=== PATIENT | female | born 2000 | race Caucasian/White ===

== ENCOUNTER 2021-09-09 01:48 | Observation (INO) ==
[2021-09-09] MEDS ORDERED: SODIUM CHLORIDE 0.9% 500 ML IV STA (02:08)
[2021-09-09] MEDS ORDERED: ONDANSETRON INJ 2 MG/ML 2 ML VIAL IV STA (02:09)
[2021-09-09] MEDS ORDERED: MoRPHine SULFATE 4 MG/ML 1 ML CARP\\VIAL IV STA (02:09)
--- NOTE | 2021-09-09 02:11 | Emergency Department Note ---
Impression & Plan Pyelonephritis ADMIT ED Provider Note HPI: The patient is a 20-year-old female who presents the emergency department with about 4 days of dysuria and right flank pain. Patient states she is also had urinary frequency and urgency. Patient states she was seen at an urgent care 3 days ago, she was diagnosed with a UTI, she tells me that STD testing was negative, placed on antibiotics (patient is unsure of which antibiotic) and Pyridium, patient states that her right flank pain has not gotten any better. On arrival to the ED the patient is hemodynamically stable, she is afebrile, she is otherwise in no acute distress. ROS: -: Right flank pain, dysuria, urinary frequency *10 point review systems was conducted and is otherwise negative unless stated above *Outpatient medications and allergy history reviewed PE: General: Alert, NAD HEENT: Normocephalic, atraumatic Eyes: Extraocular eye movement is intact, no scleral erythema Pulmonary: Clear to auscultation bilaterally, no wheezing Cardio: Regular rate and rhythm GI: Abdomen is soft, nontender : No suprapubic tenderness, mild right flank tenderness to palpation MSK: No evidence of trauma or malformation of the extremities, no edema Skin: No evidence of rash Neuro: Alert, no focal deficits Psychiatric: Cooperative CT ABDOMEN & PELVIS With Contrast: Mild fullness of the right kidney with delayed nephrogram. No definite offending calculus however, evaluation is limited due to the presence of intravenous contrast. Correlate for recently passed right-sided stone versus right-sided pyelonephritis. Mild wall thickening of the urinary bladder, correlate with urinalysis if cl inically indicated. Radiologist: Brandon Basilio MD site monitor: - An order was placed for continuous cardiac monitoring - Patient was noted to be in sinus rhythm with rate of 80 Medical Decision Making: Patient presented to the emergency department the chief complaint of right flank pain, ongoing dysuria and urinary frequency. Urinalysis does show evidence of urinary tract infection, will send urine culture as well as blood culture and patient was given IV ceftriaxone here in the ED. CT imaging of the abdomen pelvis shows evidence of some mild fullness of the right kidney suspicious for recently passed stone versus right-sided pyelonephritis. Patient does have a slight leukocytosis, also has findings of mild wall thickening of the urinary bladder. Patient did have some significant discomfort later in her stay here in the ED and was given morphine and Toradol with improvement in her pain. Given failure of outpatient therapy in addition to her right flank pain I do feel she would benefit from IV antibiotics and admission. Case was discussed with the on-call hospitalist for [facility], Dr. Dominique, and the patient was admitted in stable condition for further care. Diagnosis: 1. Acute right-sided flank pain 2. Acute pyelonephritis 3. Urinary tract infection 4. Leukocytosis Disposition: Admission Keven Delgado DO Emergency Medicine Past Med/Surg History Social History Smoking Status: Never smoker Preferred Language: Slovak Feels Safe at Home: Yes Allergies Allergies Allergy/AdvReac Type Severity Reaction Status Date / Time No Known Allergies Allergy Verified 09/09/21 02:14 Home Meds Home Medications Medication Instructions Recorded Confirmed cefdinir 300 mg capsule 300 mg PO BID 09/09/21 09/09/21 phenazopyridine 200 mg tablet 200 mg PO Q8H PRN 09/09/21 09/09/21 Results & Data (ED) Vital Signs Vital Signs - 24 hr 09/09/21 01:54 09/09/21 03:40 Temperature 36.8 C Temperature Source Temporal Artery Scan Pulse Rate 87 Pulse Rate [Apical] 76 Pulse Rhythm Regular Pulse Strength Normal Respiratory Rate 16 18 Respiratory Effort / Characteristics Non-Labored Spontaneous Respiratory Depth Normal Respiratory Pattern Regular Blood Pressure 107/70 Blood Pressure [Right Arm] 103/61 Blood Pressure Mean 82 Blood Pressure Mean [Right Arm] 75 Blood Pressure Position Sitting Pulse Oximetry 98 98 Oxygen Delivery Method Room Air Room Air Sepsis Recent Fever Within 48 Hours No Sepsis New/Unexplained Change in Mental Status N/A Sepsis Action Taken by Nursing No Action Required Laboratory Data Result diagrams: 09/09/21 02:17 09/09/21 02:17 Lab Results 09/09/21 09/09/21 09/09/21 Range/Units 02:17 02:17 02:17 WBC 11.34 H (4.8-10.8) K/uL RBC 4.23 (4.2-5.4) M/uL Hgb 13.4 (12.0-16.0) g/dL Hct 39.5 (37-47) % MCV 93.4 (80-100) fL MCH 31.7 (25-34) pg MCHC 33.9 (32-36) g/dL RDW Std Deviation 42.3 (36.4-46.3) fL RDW Coeff of [place] 12.5 (11.5-14.5) % Plt Count 387 (130-400) K/uL MPV 10.3 (7.4-10.4) fL Immature Gran % (Auto) 0.3 % Neut % (Auto) 61.9 % Lymph % (Auto) 26.6 % [place] % (Auto) 8.9 % Eos % (Auto) 1.9 % Baso % (Auto) 0.4 % Neut # (Auto) 7.02 H (1.4-6.5) K/uL Lymph # (Auto) 3.02 (1.2-3.4) K/uL [place] # (Auto) 1.01 H (0.11-0.59) K/uL Eos # (Auto) 0.21 (0-0.5) K/uL Baso # (Auto) 0.05 (0-0.2) K/uL Immature Gran # (Auto) 0.03 H (0.00-0.02) K/uL Sodium 139 (136-145) mmol/L Potassium 3.8 (3.5-5.1) mmol/L Chloride 110 H (98-107) mmol/L Carbon Dioxide 22 (21-32) mmol/L Anion Gap 7 (3-11) BUN 8 (6-23) mg/dl Creatinine 0.59 L (0.6-1.2) mg/dl Est Cr Clr Drug Dosing 118.0 ml/min Est GFR ( Amer) > 150.0 ml/min Est GFR (Non-Af Amer) 130.1 ml/min BUN/Creatinine Ratio 13.6 (10-20) Glucose 85 (70-99(Fasting)) mg/dl Calcium 9.4 (8.5-10.1) mg/dl Total Bilirubin 0.5 (0.2-1.0) mg/dl AST 12 L (13-39) U/L ALT 8 (7-52) U/L Alkaline Phosphatase 91 (34-104) U/L Total Protein 7.1 (6.0-8.3) gm/dl Albumin 4.2 (3.4-5.0) gm/dl Globulin 2.9 (2.5-4.0) gm/dl Albumin/Globulin Ratio 1.4 (0.9-2) Lipase 25 (11-82) U/L HCG, Qual Negative (Negative) Urine Color Urine Appearance (Clear) Urine pH (4.5-7.5) Ur Specific [place] (1.000-1.030) Urine Protein (Negative) Urine Glucose (UA) (Negative) Urine Ketones (Negative) Urine Blood (Negative) Urine Nitrite (Negative) Urine Bilirubin (Negative) Urine Urobilinogen (Negative) Ur Leukocyte Esterase (Negative) Urine WBC (Auto) (0-5) /hpf Urine RBC (Auto) (0-4) /hpf U Hyaline Cast (Auto) (0-5) /lpf U Epithel Cells (Auto) (0-5) /lpf Urine Bacteria (Auto) (Negative) POC Ur Test (NEG) 09/09/21 09/09/21 Range/Units 02:17 02:28 WBC (4.8-10.8) K/uL RBC (4.2-5.4) M/uL Hgb (12.0-16.0) g/dL Hct (37-47) % MCV (80-100) fL MCH (25-34) pg MCHC (32-36) g/dL RDW Std Deviation (36.4-46.3) fL RDW Coeff of [place] (11.5-14.5) % Plt Count (130-400) K/uL MPV (7.4-10.4) fL Immature Gran % (Auto) % Neut % (Auto) % Lymph % (Auto) % [place] % (Auto) % Eos % (Auto) % Baso % (Auto) % Neut # (Auto) (1.4-6.5) K/uL Lymph # (Auto) (1.2-3.4) K/uL [place] # (Auto) (0.11-0.59) K/uL Eos # (Auto) (0-0.5) K/uL Baso # (Auto) (0-0.2) K/uL Immature Gran # (Auto) (0.00-0.02) K/uL Sodium (136-145) mmol/L Potassium (3.5-5.1) mmol/L Chloride (98-107) mmol/L Carbon Dioxide (21-32) mmol/L Anion Gap (3-11) BUN (6-23) mg/dl Creatinine (0.6-1.2) mg/dl Est Cr Clr Drug Dosing ml/min Est GFR ( Amer) ml/min Est GFR (Non-Af Amer) ml/min BUN/Creatinine Ratio (10-20) Glucose (70-99(Fasting)) mg/dl Calcium (8.5-10.1) mg/dl Total Bilirubin (0.2-1.0) mg/dl AST (13-39) U/L ALT (7-52) U/L Alkaline Phosphatase (34-104) U/L Total Protein (6.0-8.3) gm/dl Albumin (3.4-5.0) gm/dl Globulin (2.5-4.0) gm/dl Albumin/Globulin Ratio (0.9-2) Lipase (11-82) U/L HCG, Qual (Negative) Urine Color Dark Yellow Urine Appearance Clear (Clear) Urine pH 8.5 H (4.5-7.5) Ur Specific [place] 1.010 (1.000-1.030) Urine Protein Negative (Negative) Urine Glucose (UA) Negative (Negative) Urine Ketones Negative (Negative) Urine Blood 2+ H (Negative) Urine Nitrite Positive A (Negative) Urine Bilirubin Negative (Negative) Urine Urobilinogen Negative (Negative) Ur Leukocyte Esterase Trace H (Negative) Urine WBC (Auto) 10-30 H (0-5) /hpf Urine RBC (Auto) >30 H (0-4) /hpf U Hyaline Cast (Auto) 0 (0-5) /lpf U Epithel Cells (Auto) 20-30 H (0-5) /lpf Urine Bacteria (Auto) Negative (Negative) POC Ur Test NEG (NEG) Administered Medications Ceftriaxone Sodium (Rocephin) 2,000 mg in 70 mls @ 140 mls/hr IV NOW STA Stop: 09/09/21 04:25 Last Admin: 09/09/21 04:19 Dose: 140 mls/hr Documented by: [id number] Discontinued Medications Sodium Chloride (Nss) 500 mls @ 999 mls/hr IV .Q31M STA Stop: 09/09/21 02:38 Last Infusion: 09/09/21 03:45 Dose: 0 mls/hr Documented by: [id number] Admin: 09/09/21 02:24 Dose: 999 mls/hr Documented by: [id number] Ketorolac Tromethamine (Ketorolac Tromethamine 15 Mg/Ml Vial) 15 mg IV NOW ONE Stop: 09/09/21 03:44 Last Admin: 09/09/21 03:48 Dose: 15 mg Documented by: [id number] Morphine Sulfate (Morphine Sulfate 4 Mg/Ml 1 Ml Carp\Vial) 4 mg IV NOW STA Stop: 09/09/21 02:10 Last Admin: 09/09/21 02:25 Dose: 4 mg Documented by: [id number] Ondansetron HCl (Ondansetron Inj 2 Mg/Ml 2 Ml Vial) 4 mg IV NOW STA Stop: 09/09/21 02:10 Last Admin: 09/09/21 02:25 Dose: 4 mg Documented by: [id number] Discharge Plan Visit Data Chief Complaint: Urinary Symptoms Stated Complaint: UTI, LOWER BACK PAIN ED Provider: Keven Delgado Discharge Problem: Pyelonephritis Forms Stand Alone Forms: [facility] Prescriptions Prescriptions: No Action phenazopyridine 200 mg tablet 200 mg PO Q8H PRN (Reason: BLADDER PAIN) RF: 0 cefdinir 300 mg capsule 300 mg PO BID RF: 0 Referrals Referrals: PCP,NO [Primary Care Provider] -
[2021-09-09 02:32] LABS: Basophils # (auto) 0.05 K/uL (0-0.2); Basophils % (auto) 0.4 %; Eosinophils # (auto) 0.21 K/uL (0-0.5); Eosinophils % (auto) 1.9 %; Hematocrit (blood only) 39.5 % (37-47); Hemoglobin 13.4 g/dL (12.0-16.0); Immature Granulocytes # (auto) 0.03 K/uL (0.00-0.02); Immature Granulocytes % (auto) 0.3 %; Lymphocytes # (auto) 3.02 K/uL (1.2-3.4); Lymphocytes % (auto) 26.6 %; Mean Corpuscular Hemoglobin 31.7 pg (25-34); Mean Corpuscular Hgb Conc 33.9 g/dL (32-36); Mean Corpuscular Volume 93.4 fL (80-100); Mean Platelet Volume 10.3 fL (7.4-10.4); Monocytes # (auto) 1.01 K/uL (0.11-0.59); Monocytes % (auto) 8.9 %; Neutrophils # (auto) 7.02 K/uL (1.4-6.5); Neutrophils % (auto) 61.9 %; Platelet Count 387 K/uL (130-400); RDW Coefficient of Variation 12.5 % (11.5-14.5); RDW Standard Deviation 42.3 fL (36.4-46.3); Red Blood Count 4.23 M/uL (4.2-5.4); White Blood Count 11.34 K/uL (4.8-10.8)
[2021-09-09 02:38] LABS: Appearance Urine Clear (Clear); Bacteria Urine Automated Negative (Negative); Bilirubin Urine Negative (Negative); Blood Urine 2+ (Negative); Cast Urine Automated 0 /lpf (0-5); Color Urine Dark Yellow; Epithelial Cell Urine Auto 20-30 /lpf (0-5); Glucose Urine UA Negative (Negative); Ketones Urine Negative (Negative); Leukocyte Esterase Urine Trace (Negative); Nitrite Urine Positive (Negative); Protein Urine Negative (Negative); RBC Urine Automated >30 /hpf (0-4); Urobilinogen Urine Negative (Negative); pH Urine 8.5 (4.5-7.5)
[2021-09-09 02:41] LABS: Pregnancy Test, Serum Negative (Negative)
[2021-09-09 02:52] LABS: Alanine Aminotransferase 8 U/L (7-52); Albumin Globulin Ratio 1.4 (0.9-2); Albumin Level 4.2 gm/dl (3.4-5.0); Alkaline Phosphatase 91 U/L (34-104); Anion Gap 7 (3-11); Aspartate Aminotransferase 12 U/L (13-39); BUN Creatinine Ratio 13.6 (10-20); Bilirubin,Total 0.5 mg/dl (0.2-1.0); Blood Urea Nitrogen 8 mg/dl (6-23); Calcium 9.4 mg/dl (8.5-10.1); Carbon Dioxide 22 mmol/L (21-32); Chloride 110 mmol/L (98-107); Est GFR (African American) > 150.0 ml/min; Est GFR (Non-African American) 130.1 ml/min; Globulin 2.9 gm/dl (2.5-4.0); Glucose 85 mg/dl (70-99(Fasting)); Lipase 25 U/L (11-82); Potassium 3.8 mmol/L (3.5-5.1); Sodium 139 mmol/L (136-145); Total Protein 7.1 gm/dl (6.0-8.3)
[2021-09-09] MEDS ORDERED: OPTIRAY 320 100ml IV ONE (03:23)
[2021-09-09] MEDS ORDERED: KETOROLAC TROMETHAMINE 15 MG/ML VIAL IV ONE (03:43)
[2021-09-09] MEDS ORDERED: cefTRIAXone SODIUM 2,000 MG/70 ML BAG IV STA (03:56)
[2021-09-09] MEDS ORDERED: CIPROFLOXACIN / D5W 400 MG/200 ML BAG IV STA (04:28)
[2021-09-09] MEDS ORDERED: LACTATED RINGER'S 1,000 ML IV STA (04:32)
--- NOTE | 2021-09-09 04:32 | History & Physical Report ---
Date of Service September 09, 2021 History of Present Illness Primary Care Provider: NO PCP Allergies Allergy/AdvReac Type Severity Reaction Status Date / Time No Known Allergies Allergy Verified 09/09/21 02:14 Home Medications Medication Instructions Recorded Confirmed Type cefdinir 300 mg capsule 300 mg PO BID 09/09/21 09/09/21 History phenazopyridine 200 mg tablet 200 mg PO Q8H PRN 09/09/21 09/09/21 History Past Med/Surg History Social History Smoking Status: Never smoker Preferred Language: Faroese Feels Safe at Home: Yes Results & Data Results & Data ([facility]) Vital Signs (Past 12 Hours) Vital Signs Temp Pulse Pulse Resp BP BP Pulse Ox 09/09/21 04:24 96 09/09/21 03:40 76 18 103/61 98 09/09/21 01:54 36.8 C 87 16 107/70 98 Laboratory Results 09/09/21 09/09/21 09/09/21 02:17 02:17 02:17 WBC 11.34 H RBC 4.23 Hgb 13.4 Hct 39.5 MCV 93.4 MCH 31.7 MCHC 33.9 RDW Std Deviation 42.3 RDW Coeff of Taurus 12.5 Plt Count 387 MPV 10.3 Immature Gran % (Auto) 0.3 Neut % (Auto) 61.9 Lymph % (Auto) 26.6 [place] % (Auto) 8.9 Eos % (Auto) 1.9 Baso % (Auto) 0.4 Neut # (Auto) 7.02 H Lymph # (Auto) 3.02 [place] # (Auto) 1.01 H Eos # (Auto) 0.21 Baso # (Auto) 0.05 Immature Gran # (Auto) 0.03 H Sodium 139 Potassium 3.8 Chloride 110 H Carbon Dioxide 22 Anion Gap 7 BUN 8 Creatinine 0.59 L Est Cr Clr Drug Dosing 118.0 Est GFR ( Amer) > 150.0 Est GFR (Non-Af Amer) 130.1 BUN/Creatinine Ratio 13.6 Glucose 85 Calcium 9.4 Total Bilirubin 0.5 AST 12 L ALT 8 Alkaline Phosphatase 91 Total Protein 7.1 Albumin 4.2 Globulin 2.9 Albumin/Globulin Ratio 1.4 Lipase 25 HCG, Qual Negative Urine Color Urine Appearance Urine pH Ur Specific [place] Urine Protein Urine Glucose (UA) Urine Ketones Urine Blood Urine Nitrite Urine Bilirubin Urine Urobilinogen Ur Leukocyte Esterase Urine WBC (Auto) Urine RBC (Auto) U Hyaline Cast (Auto) U Epithel Cells (Auto) Urine Bacteria (Auto) POC Ur Test 09/09/21 09/09/21 02:17 02:28 WBC RBC Hgb Hct MCV MCH MCHC RDW Std Deviation RDW Coeff of [place] Plt Count MPV Immature Gran % (Auto) Neut % (Auto) Lymph % (Auto) [place] % (Auto) Eos % (Auto) Baso % (Auto) Neut # (Auto) Lymph # (Auto) [place] # (Auto) Eos # (Auto) Baso # (Auto) Immature Gran # (Auto) Sodium Potassium Chloride Carbon Dioxide Anion Gap BUN Creatinine Est Cr Clr Drug Dosing Est GFR ( Amer) Est GFR (Non-Af Amer) BUN/Creatinine Ratio Glucose Calcium Total Bilirubin AST ALT Alkaline Phosphatase Total Protein Albumin Globulin Albumin/Globulin Ratio Lipase HCG, Qual Urine Color Dark Yellow Urine Appearance Clear Urine pH 8.5 H Ur Specific [place] 1.010 Urine Protein Negative Urine Glucose (UA) Negative Urine Ketones Negative Urine Blood 2+ H Urine Nitrite Positive A Urine Bilirubin Negative Urine Urobilinogen Negative Ur Leukocyte Esterase Trace H Urine WBC (Auto) 10-30 H Urine RBC (Auto) >30 H U Hyaline Cast (Auto) 0 U Epithel Cells (Auto) 20-30 H Urine Bacteria (Auto) Negative POC Ur Test NEG Medications Administered Mild fullness of the right kidneywith delayed nephrogram. No definite offending calculus however, evaluation is limited due to the presence of intravenous contrast. Correlate for recentlypassed right-sided stone versus right-sided pyelonephritis. Mild wall thickening of the urinarybladder, correlate with urinalysis if clinicallyindicated
--- NOTE | 2021-09-09 06:13 | History & Physical Report ---
Date of Service September 09, 2021 Assessment & Plan (1) Pyelonephritis: Plan: 20 y/o F without active medical issues. Presented to an outpt clinic a few days prior with urinary symptoms. She was diagnosed with a UTI and provided with a course of Cefdinir. She has had progressive R flank pain regardless. She denies fevers. She has had nausea without vomiting. Labs are notable for mild leukocytosis and a + UA. A CT abdomen was consistent with R pyelonephritis and possibly a passed stone. The R collecting system is slightly enlarged without any visible obstruction. The pt failed Cefdinir and will be placed on Cipro 400mg BID pending cultures. Pain control and IVF provided. She can likely be DCd if she improves or cultures return with an organism that would be susceptin=ble to PO tretament. Full code - anticoagulation deferred as she is ambulatory and having her period. Total time for this admit including review of labs, meds, imaging, records - discussion with pt and ER attending - 30 min History of Present Illness Chief Complaint: R flank pain Primary Care Provider: NO PCP 20 y/o F without active medical issues. Presented to an outpt clinic a few days prior with urinary symptoms. She was diagnosed with a UTI and provided with a course of Cefdinir. She has had progressive R flank pain regardless. She denies fevers. She has had nausea without vomiting. Labs are notable for mild leukocytosis and a + UA. A CT abdomen was consistent with R pyelonephritis and possibly a passed stone. The R collecting system is slightly enlarged without any visible obstruction. PMH: Denies past medical or surgical history Social: [employer] student. Does not smoke. Occasional ETOH. Family: Both parents alive and well Allergies Allergy/AdvReac Type Severity Reaction Status Date / Time No Known Allergies Allergy Verified 09/09/21 02:14 Home Medications Medication Instructions Recorded Confirmed Type cefdinir 300 mg capsule 300 mg PO BID 09/09/21 09/09/21 History phenazopyridine 200 mg tablet 200 mg PO Q8H PRN 09/09/21 09/09/21 History Past Med/Surg History Social History Smoking Status: Never smoker Preferred Language: [place] Feels Safe at Home: Yes Review of Systems Review of Systems: Gen: Denies fevers, night sweats, rigors, fatigue, malaise, weight loss/gain ENT: Denies congestion, throat pain, hearing loss Eyes: Denies acute visual changes CV: Denies CP, palpitations Pulmonary: Denies SOB, cough, wheezing GI: Denies N/V, diarrhea, constipation : R flank pain, dysuria Neuro: Denies acute or unilateral weakness, acute gait impairment, headache or acute visual changes Musculoskeletal: Denies joint pain, inflammation Endocrine: Denies polydipsia, polyuria Skin: Denies acute rashes or ulcers Physical Exam Physical Exam: General: AAO x 3, no distress ENT: No erythema or exudates, no thrush Eyes: ESTELA, EOMI Head and neck: Normocephalic, atraumatic, No JVD, neck is supple. Chest/heart: Nontender, S1,2, RRR, no murmurs, no gallops Lungs: CTAB, no wheezing or crackles Abdomen: Nontender, nondistended, BS+. + R flank tenderness. Neuro: AAO x 3, speech is clear, no unilateral weakness or loss of sensation, coordination intact Musculoskeletal: No joint inflammation, muscle tenderness, FROM Skin: No acute rashes or ulcers Extremities: No clubbing, cyanosis, edema Results & Data Results & Data ([facility]) Vital Signs (Past 12 Hours) Vital Signs Temp Pulse Pulse Resp BP BP Pulse Ox 09/09/21 05:00 74 15 106/81 97 09/09/21 04:24 96 09/09/21 03:40 76 18 103/61 98 09/09/21 01:54 98.2 F 87 16 107/70 98 Code Status & VTE Plan VTE Prophylaxis Plan VTE Prophylaxis will be ordered: Yes PG Care Time/CCT Total # of Minutes Spent Total Time Spent with Patient: Total time spent is greater than 50% in coordination of care (as documented) at patient's floor/unit and/or counseling patient: Coding Level of Care Code 62388 Initial Inpt Care Lvl 2 Diagnoses Pyelonephritis N12
[2021-09-09] MEDS ORDERED: SODIUM CHLORIDE 0.9% 1,000 ML IV SCH (06:15)
--- NOTE | 2021-09-09 07:38 | CT Scan Report ---
ABDOMEN AND PELVIS CT WITH IV CONTRAST CT DOSE: 288.86 mGy.cm HISTORY: Acute right-sided flank pain with urinary tract infection R flank pain, UTI sx TECHNIQUE: Multiaxial CT images of the abdomen and pelvis were performed following the IV administrat ion of 93 cc of Optiray, A dose lowering technique was utilized adhering to the principles of ALARA. COMPARISON STUDY: None. FINDINGS: The imaged inferior cardiac chambers are unremarkable. Clear lung bases. There is no pneuma tosis or pneumoperitoneum. Unremarkable spleen, pancreas and adrenal glands. Mildly distended gallbla dder the common bile duct measures within the upper limits of normal at 6 mm. Unremarkable liver. Pat ency of the hepatic and portal veins. There is mild urothelial thickening of the right greater than left collecting systems and ureters. Th ere is mild right-sided hydronephrosis with right perinephric and periureteral inflammation. No urete ral calculi or hydroureter. Circumferential urinary bladder wall thickening with perivesicular inflam matory stranding. Unremarkable uterus. Follicular changes of the ovaries. Aorta and IVC are unremarka ble. There is no lymphadenopathy. There is no bowel obstruction. Rectal wall thickening is likely secondary to partial distention. Ther e is moderate fecal retention involving the ascending and transverse colon. Stool-filled loops of dis padmini ileum may reflect decreased small bowel transit. Noninflamed appendix. Unremarkable soft tissues. There is no acute fracture. Tiny fat filled periumbilical hernia. IMPRESSION: 1. Findings suggestive of cystitis. Additionally, there is urothelial thickening and enhancement of t he right greater than left renal collecting systems and ureters suggestive of an associated infectiou s pyelitis/ureteritis. 2. Mild right-sided hydronephrosis is also likely related to the aforementioned infectious etiology. No urolith identified. 3. No bowel obstruction. 4. Moderate fecal retention of the ascending and transverse colon. 5. Normal appendix. ACT 112: Negative or not required by law. The above report was generated using voice recognition software. It may contain grammatical, syntax o r spelling errors. Electronically signed by: Jose Moe M.D. 09/09/2021 7:37 AM
[2021-09-09] MEDS ORDERED: MoRPHine SULFATE 2 MG/ML CARP IV PRN (09:02)
[2021-09-09] MEDS ORDERED: ZOLPIDEM TARTRATE 5 MG TAB PO PRN (09:02)
[2021-09-09] MEDS ORDERED: ACETAMINOPHEN 325 MG TAB PO PRN (09:02)
[2021-09-09] MEDS ORDERED: ONDANSETRON INJ 2 MG/ML 2 ML VIAL IV PRN (09:53)
--- NOTE | 2021-09-09 10:16 | Communication Note ---
Date of Service: September 09, 2021 Patient evaluated around 10am, doing well. Reports improvement in pain/discomfort. No further fevers. Was on cefdinir outpatient, currently on Cipro. Awaiting cultures, but if continues to have improvement planning for d/c on PO Cipro tomorrow unless cultures w/ resistant bacteria. Had reported some nausea this morning, no vomiting. Zofran added prn. Did have history of kidney stones about 6-7 years ago, unknown if family history of stones. Does endorse decent amount of coffee/tea/caffeine. Instructed to avoid. Continued inpatient monitoring and plans for d/c tomorrow.
--- NOTE | 2021-09-09 15:05 | Discharge Summary ---
Date of Service September 09, 2021 Admission HPI Per Admitting Provider 20 y/o F without active medical issues. Presented to an outpt clinic a few days prior with urinary symptoms. She was diagnosed with a UTI and provided with a course of Cefdinir. She has had progressive R flank pain regardless. She denies fevers. She has had nausea without vomiting. Labs are notable for mild leukocytosis and a + UA. A CT abdomen was consistent with R pyelonephritis and possibly a passed stone. The R collecting system is slightly enlarged without any visible obstruction. PMH: Denies past medical or surgical history Social: [employer] student. Does not smoke. Occasional ETOH. Family: Both parents alive and well Admission Exam Per Admitting Provider General: AAO x 3, no distress ENT: No erythema or exudates, no thrush Eyes: ESTELA, EOMI Head and neck: Normocephalic, atraumatic, No JVD, neck is supple. Chest/heart: Nontender, S1,2, RRR, no murmurs, no gallops Lungs: CTAB, no wheezing or crackles Abdomen: Nontender, nondistended, BS+. + R flank tenderness. Neuro: AAO x 3, speech is clear, no unilateral weakness or loss of sensation, coordination intact Musculoskeletal: No joint inflammation, muscle tenderness, FROM Skin: No acute rashes or ulcers Extremities: No clubbing, cyanosis, edema Principal Diagnosis UTI, Pyelitis Discharge Exam General: AAO x 3, no distress laying in bed with boyfriend HEENT: No erythema or exudates, no thrush, mmm, trachea midline without deviation, pupils equal and reactive Chest/heart: RRR, no m/r/g, no edema or calf tenderness Lungs: CTAB, no wheezing or crackles Abdomen: Nontender, nondistended, BS+. + R flank tenderness (minimal) Neuro: AAO x 3, speech is clear, no unilateral weakness or loss of sensation, coordination intact Musculoskeletal: No joint inflammation, muscle tenderness, FROM Skin: No acute rashes or ulcers Extremities: No clubbing, cyanosis, edema Discharge Data Allergies Allergy/AdvReac Type Severity Reaction Status Date / Time nickel AdvReac Rash Verified 09/09/21 09:54 Consultations 09/09/21 04:45 ED Decision to Admit Stat 09/09/21 05:20 ED Decision to Admit Stat Ordered Studies Abdomen/Pelvis CT 09/09/21 02:[address] WITH IV CONTRAST CT DOSE: 288.86 mGy.cm HISTORY: Acute right-sided flank pain with urinary tract infection R flank pain, UTI sx TECHNIQUE: Multiaxial CT images of the abdomen and pelvis were performed following the IV administration of 93 cc of Optiray, A dose lowering technique was utilized adhering to the principles of ALARA. COMPARISON STUDY: None. FINDINGS: The imaged inferior cardiac chambers are unremarkable. Clear lung bases. There is no pneumatosis or pneumoperitoneum. Unremarkable spleen, pancreas and adrenal glands. Mildly distended gallbladder the common bile duct measures within the upper limits of normal at 6 mm. Unremarkable liver. Patency of the hepatic and portal veins. There is mild urothelial thickening of the right greater than left collecting systems and ureters. There is mild right-sided hydronephrosis with right per inephric and periureteral inflammation. No ureteral calculi or hydroureter. Circumferential urinary bladder wall thickening with perivesicular inflammatory stranding. Unremarkable uterus. Follicular changes of the ovaries. Aorta and IVC are unremarkable. There is no lymphadenopathy. There is no bowel obstruction. Rectal wall thickening is likely secondary to partial distention. There is moderate fecal retention involving the ascending and transverse colon. Stool-filled loops of distal ileum may reflect decreased small bowel transit. Noninflamed appendix. Unremarkable soft tissues. There is n o acute fracture. Tiny fat filled periumbilical hernia. IMPRESSION: 1. Findings suggestive of cystitis. Additionally, there is urothelial thickening and enhancement of the right greater than left renal collecting systems and ureters suggestive of an associated infectious pyelitis/ureteritis. 2. Mild right-sided hydronephrosis is also likely related to the aforementioned infectious etiology. No urolith identified. 3. No bowel obstruction. 4. Moderate fecal retention of the ascending and transverse colon. 5. Normal appendix. ACT 112: Negative or not required by law. The above report was generated using voice recognition software. It may contain grammatical, syntax or spelling errors. Electronically signed by: Jose Moe M.D. 09/09/2021 7:37 AM Hospital Course (1) Pyelonephritis: 20 y/o F without active medical issues. Presented to an outpt clinic 4 days ago with urinary symptoms (STD testing reported negative), dx with UTI and placed on Cefdinir Progressive R flank pain despite abx and presented to ER CTAP 1. Findings suggestive of cystitis. Additionally, there is urothelial thickening and enhancement of the right greater than left renal collecting systems and ureters suggestive of an associated infectious pyelitis/ureteritis. 2. Mild right-sided hydronephrosis is also likely related to the aforementioned infectious etiology. No urolith identified. Possibly a passed stone, gasper given patient reported hx of stones in the past, approx 5-6 yrs ago endorses significant tea/coffee/caffeine consumption, no family hx known for stone per patient and advised to limit intake to prevent continued issues. Placed on Cipro IV, supportive care with IVF/antiemetics prn --> improvement in symptoms and no further pain reported, no nausea or vomiting. Discussed with patient possibility of discharge and calling her if any resistant bacteria --> patient would like to be discharged (has exam tonight) and will call if any issues. Sending on Cipro 500mg BID x 7 days to complete course Zofran PO prn also sent as needed Consider ref to urology in future if any ongoing issues given prior hx stones Total Time Total Time Spent Total Time Spent (In Minutes): 35 Discharge Plan Discharge Items Patient Disposition: Home - Self-Care Reason For Visit: PYELONEPHRITIS Discharge Diagnosis: Pyelonephritis Goals: You have been hospitalized for an acute medical problem. During your stay at [facility], we have made an effort to correct the problem that brought you to the hospital while keeping you as comfortable as possible. Medications were used to bring your condition under control and your discharge instructions will include directions for any medications you should take after leaving the hospital. Please make sure you see your Primary Care Provider as part of your follow up plan. Activity: As commented below Non-emergency contact: Primary Care Provider Call non-emergency contact if: you have any medication questions, your symptoms worsen, your pain is not controlled and you have a fever Follow-up/Referrals: [place],[facility] [Non-Staff] - PCP,NO [Primary Care Provider] - ([facility] ) Diet: Regular Addtl Attending Provider Instructions: You have been hospitalized for a urinary tract infection. Imaging showed possible recently passed stone and findings consistent with an infection that is a little higher up, called pyelonephritis. Cefdinir as previously used does not cover for this and you were placed on IV ciprofloxacin and improvement in symptoms suggests this will be more than adequate. You will continue Ciprofloxacin 500mg by mouth twice daily for total 7 days (6.5 days left including tonight's dose) to complete the course of treatment. I will call you if cultures result with any bacteria resistant to the Cipro if that occurs. Avoid heavy activity during this time as small chance for something such as an Achilles tendon rupture when on this medication and doing heavy exercise. You have also been sent some Zofran to use as needed for nausea and should continue to drink plenty of water to ensure staying hydrated. You can use ibuprofen 400-600mg by mouth every 6-8 hours as needed for pain but monitor for any increased bleeding while having menses. You should limit caffeine consumption to prevent further stone formation. You may also want to consider over the counter miralax/colace to help assist with bowel movements given constipation on imaging which can worsen pain symptoms. Please follow up with [facility] in the next 7-10 days to monitor your progress. Please return to the ER with any fevers, worsening pain, inability to keep up with oral hydration or for any symptoms concerning for you. Pending Studies at Discharge: Yes Studies:: Urine culture, blood culture no growth to date Stand-Alone Forms: My [facility] [employer], Smoking Cessation Medications and DC Order Prescriptions: New ondansetron 4 mg tablet,disintegrating 4 mg PO Q8H PRN (Reason: nausea and vomiting) 3 Days Qty: 9 RF: 0 ciprofloxacin HCl 500 mg tablet 500 mg PO BID 7 Days Qty: 13 RF: 0 Continued phenazopyridine 200 mg tablet 200 mg PO Q8H PRN (Reason: BLADDER PAIN) RF: 0 Discontinued cefdinir 300 mg capsule 300 mg PO BID RF: 0 Discharge Orders: Discharge Order (Routine); Ordered 09/09/21 Ordered By: Adeline Gaspar Admission Data Admit Date/Time: 09/09/21 05:56 Attending Provider: Marco Putnam Admit Provider: Levi Arias Primary Care Provider: PCP,NO Other Providers: Joseluis Demarco ; Levi Arias Coding Level of Care Code OBSERV/HOSP SAME DATE LVL 3 Diagnoses Pyelonephritis N12
[2021-09-09] MEDS ORDERED: CIPROFLOXACIN / D5W 400 MG/200 ML BAG IV SCH (18:00)
== END 2021-09-09 15:23 | disposition home or self-care (01) | DRG 690 ==
LOC: ED 01:48 → 3N 05:56 → INTOOBSV 05:56 → SUATTDRO 05:56 → 3N 08:26